=== PATIENT | male | born 1975 ===

== ENCOUNTER 2018-03-23 10:54 | Day surgery (SDC) | payer OTHER ==
[2018-03-16 09:06] VITALS: BMI 30.1
[2018-03-23] MEDS ORDERED: Lidocaine 2% MPF (5 ml) Inj ONE (15:25)
[2018-03-23] MEDS ORDERED: ceFAZolin IV 1 gm in Dextrose 1 GM/50 ML BAG IVPB ONE (15:25)
[2018-03-23] MEDS ORDERED: Bupivacaine 0.25% 20 ML INJ IJ ONE (15:25)
[2018-03-23] MEDS ORDERED: Propofol 10 mg/ml Inj (20 ML) ONE ×2 (15:32→15:45)
[2018-03-23] MEDS ORDERED: Rocuronium 10 mg/ml (5 ml) ONE (15:53)
[2018-03-23] MEDS ORDERED: Oxycodone/Acetaminophen 5/325 mg Tab PO PRN (16:15)
[2018-03-23] MEDS ORDERED: Lactated Ringer's 1,000 ML IV SCH (16:30)
[2018-03-23 17:56] VITALS: O2SAT 99
[2018-03-23 18:47] VITALS: BP 137/75; PULSE 73; RESP 18; TEMP 98
--- NOTE | 2018-03-24 08:29 | OP ---
Copied To: Davonte Bains MD Attending MD: Davonte Bains MD PROCEDURE DATE: 03/23/2018 PREOPERATIVE DIAGNOSIS: Incarcerated right inguinal hernia. POSTOPERATIVE DIAGNOSIS: Incarcerated right inguinal hernia. PROCEDURES PERFORMED: 1. Repair of incarcerated right inguinal hernia. 2. Repair of spermatic blood vessel. 3. Drainage of right groin hematoma. SURGEON: Davonte Bains MD ANESTHESIA: General endotracheal. BLOOD LOSS: 40 L. POSTOP CONDITION: Stable. INDICATION FOR SURGERY: This is a 43-year-old male. He sustained an accident at work, resulting in a traumatic right inguinal hernia. He now will undergo repair. GROSS FINDINGS: There was a partially incarcerated direct inguinal hernia noted. It was associated with small amount of hematoma, which looks like it had resolved since the time of the injury. There was also an injury to the spermatic vessel which was repaired. DESCRIPTION OF PROCEDURE: The patient was taken to the operating room, placed in a supine position. General anesthesia administered, and the right groin was shaved, prepped, and draped. Standard right inguinal incision was made and the external oblique aponeurosis was exposed and opened. The spermatic cord was looped with a [place] drain. There was a small amount of clot within the inguinal canal which was evacuated. The direct hernia was dissected free, reduced, and repaired with an interrupted 2-0 imbricating suture. Damage to the spermatic vessel was noted and repaired using a 7-0 Prolene with blood flow confirmed by Doppler. The wound was irrigated with copious amount of saline solution and closed in layers with heavy Monocryl, subcuticular Monocryl, and skin chris. The patient tolerated the procedure well. Returned to recovery room in stable condition. Davonte Bains MD
== END 2018-03-23 18:55 | disposition home or self-care (01) ==
LOC: C.SDS 10:54
PROVIDERS: ATTEND Surgery
DX: K40.30 Unilateral inguinal hernia, with obstruction, without gangrene, not specified as recurrent (principal)
CPT/HCPCS: 49507; J0690; J1885; J2001; J2704; J3010